=== PATIENT | female | born 1965 | race Two or more races ===

== ENCOUNTER 2023-12-28 08:29 | Outpatient (RCR) | payer BC, SELFPAY ==
[2023-12-27 15:10] LABS: Alanine Aminotransferase 22 U/L (10-49); Albumin, Serum 4.5 gm/dL (3.5-5.0); Albumin/Globulin Ratio 1.6 (1.2-2.2); Alkaline Phosphatase 68 U/L (46-116); Anion Gap 7 (7-16); Aspartate Amino Transferase 23 U/L (0-34); BUN/Creatinine Ratio 19 Ratio (12-20); Bilirubin,Total 0.8 mg/dL (0.3-1.2); Blood Urea Nitrogen 15 mg/dL (9-23); Calcium 10.1 mg/dL (8.3-10.6); Calcium (Corrected) 10.1 mg/dL (8.5-10.1); Chloride 104 mMol/L (98-107); Creatinine (Component) 0.8 mg/dL (0.6-1.3); Globulin 2.9 gm/dL (2.3-3.5); Glucose 214 mg/dL (74-106); Osmolality,Calculated 278 (275-295); Potassium 3.7 mMol/L (3.4-5.1); Sodium 136 mMol/L (136-145); Total Protein 7.4 gm/dL (5.7-8.2); eGFR > 60 See Note
[2023-12-27 15:15] LABS: Basophils % (Auto) 0 % (0-2.5); Eosinophils # (Auto) 0.1 Thou/mm3 (0.0-0.5); Eosinophils % (Auto) 1 % (0-10); Hematocrit 36.5 % (36.0-46.0); Hemoglobin 11.7 g/dL (12.0-16.0); Immature Granulocytes % (Auto) 0 % (0-0); Immature Granulocytes Auto 0.02 Thou/mm3 (0.00-0.00); Lymphocytes # (Auto) 1.5 Thou/mm3 (1.0-4.8); Lymphocytes % (Auto) 24 % (10-50); Mean Corpuscular HGB Conc 32.1 g/dl (31.0-37.0); Mean Corpuscular Hemoglobin 22.5 pg (25.0-35.0); Mean Corpuscular Volume 70 fL (80-100); Monocytes # (Auto) 0.6 Thou/mm3 (0.0-0.8); Monocytes % (Auto) 9 % (0-12); Neutrophils # (Auto) 4.3 Thou/mm3 (1.8-7.7); Neutrophils % (Auto) 66 % (37-80); Nucleated Red Blood Cell % 0 /100 WBC (0); Platelet Count 200 Thou/mm3 (140-440); RDW Standard Deviation 35.2 fL (36.4-46.3); White Blood Count 6.6 Thou/mm3 (3.6-11.0)
[2023-12-27 15:27] LABS: CA 15-3 2.5 U/mL (<32.4); Carcinoembryonic Antigen 0.7 ng/mL (0.0-5.0)
== END 2024-01-08 23:59 | disposition home or self-care (01) ==
LOC: SCTC 08:29
PROVIDERS: PCP Specialist; Referring Provider Specialist; Visit Provider Nurse Practitioner Family
DX: C50.212 Malignant neoplasm of upper-inner quadrant of left female breast (principal); Z17.0 Estrogen receptor positive status [ER+]; Z17.22 Progesterone receptor negative status; Z17.32 Human epidermal growth factor receptor 2 negative status; Z90.12 Acquired absence of left breast and nipple; Z92.21 Personal history of antineoplastic chemotherapy; Z79.811 Long term (current) use of aromatase inhibitors; N64.4 Mastodynia; D56.3 Thalassemia minor; M85.88 Other specified disorders of bone density and structure, other site; E11.9 Type 2 diabetes mellitus without complications; Z79.83 Long term (current) use of bisphosphonates
CPT/HCPCS: 36591; 80053; 82378; 85025; 86300; 99212; A4216; J1642; G0463

== ENCOUNTER → 2024-02-21 | Outpatient (CLI) | payer BC, SELFPAY ==
--- NOTE | 2024-02-21 12:00 | XR_ITS ---
Examination: Breast ultrasound, unilateral, left complete Date and time of exam: February 21, 2024 1128 hours INDICATIONS: BI-RADS 4 suspicious nodule retroareolar region left breast, 13 x 13 mm, biopsied on September 22, 2023 Technique: Real-time choudhary scale ultrasonographic imaging performed left breast including all 4 quadrants as well as nipple retroareolar and axillary region. Findings: 3:00 oval mass or calcified 5 x 5 mm Retroareolar oval mass with breast biopsy marker 15 x 9 x 14 mm IMPRESSION: BI-RADS Category 3: Probably benign findings One additional 6 month left breast sonogram is needed to document continued stability of retroareolar nodule left breast
== END | disposition home or self-care (01) ==
PROVIDERS: PCP Physician Assistant; Referring Provider Nurse Practitioner Family; Visit Provider Nurse Practitioner Family
DX: N63.42 Unspecified lump in left breast, subareolar (principal); C50.212 Malignant neoplasm of upper-inner quadrant of left female breast
CPT/HCPCS: 76641

== ENCOUNTER 2024-03-14 11:03 | Outpatient (RCR) | payer BC, SELFPAY ==
[2024-03-13 16:49] LABS: Basophils % (Auto) 0 % (0-2.5); Eosinophils # (Auto) 0.1 Thou/mm3 (0.0-0.5); Eosinophils % (Auto) 2 % (0-10); Hematocrit 34.5 % (36.0-46.0); Immature Granulocytes % (Auto) 0 % (0-0); Immature Granulocytes Auto 0.01 Thou/mm3 (0.00-0.00); Lymphocytes # (Auto) 1.8 Thou/mm3 (1.0-4.8); Lymphocytes % (Auto) 32 % (10-50); Mean Corpuscular HGB Conc 31.9 g/dl (31.0-37.0); Mean Corpuscular Volume 69 fL (80-100); Monocytes # (Auto) 0.5 Thou/mm3 (0.0-0.8); Monocytes % (Auto) 9 % (0-12); Neutrophils # (Auto) 3.3 Thou/mm3 (1.8-7.7); Neutrophils % (Auto) 57 % (37-80); Nucleated Red Blood Cell % 0 /100 WBC (0); Platelet Count 212 Thou/mm3 (140-440); RDW Standard Deviation 34.5 fL (36.4-46.3); White Blood Count 5.7 Thou/mm3 (3.6-11.0)
[2024-03-13 16:51] LABS: Immature Reticulocyte Fraction 14.1 % (3.0-15.9); Reticulocyte % (Auto) 1.1 % (0.5-1.5); Reticulocyte Hgb Content 26.9 pg (28.0-35.0)
[2024-03-13 17:13] LABS: Alanine Aminotransferase 26 U/L (10-49); Albumin, Serum 4.4 gm/dL (3.5-5.0); Albumin/Globulin Ratio 1.5 (1.2-2.2); Alkaline Phosphatase 58 U/L (46-116); Anion Gap 9 (7-16); Aspartate Amino Transferase 26 U/L (0-34); BUN/Creatinine Ratio 27 Ratio (12-20); Bilirubin,Total 0.7 mg/dL (0.3-1.2); Blood Urea Nitrogen 16 mg/dL (9-23); Calcium 10.4 mg/dL (8.3-10.6); Calcium (Corrected) 10.4 mg/dL (8.5-10.1); Carbon Dioxide 27.3 mMol/L (20.0-31.0); Chloride 104 mMol/L (98-107); Creatinine (Component) 0.6 mg/dL (0.6-1.3); Glucose 117 mg/dL (74-106); Osmolality,Calculated 281 (275-295); Potassium 3.9 mMol/L (3.4-5.1); Sodium 140 mMol/L (136-145); Total Protein 7.4 gm/dL (5.7-8.2); eGFR > 60 See Note
[2024-03-13 17:16] LABS: Folate > 24.00 ng/mL (>5.38); Vitamin B12 1489 pg/mL (211-911)
[2024-03-13 22:50] LABS: Ferritin 58 ng/mL (7.3-270.7); Total Iron Binding Capacity 328 mcg/dL (250-425)
[2024-03-13 23:00] LABS: Iron 93 mcg/dL (50-170); Percent Iron Saturation 28 % (20-55); Unsaturated Iron Binding 235 (225-295)
== END 2024-04-07 23:59 | disposition home or self-care (01) ==
LOC: SCTC 11:03
PROVIDERS: PCP Physician Assistant; Referring Provider Physician Assistant; Visit Provider Nurse Practitioner Family
DX: C50.212 Malignant neoplasm of upper-inner quadrant of left female breast (principal); Z17.0 Estrogen receptor positive status [ER+]; Z17.22 Progesterone receptor negative status; Z17.32 Human epidermal growth factor receptor 2 negative status; Z90.12 Acquired absence of left breast and nipple; Z92.21 Personal history of antineoplastic chemotherapy; Z92.3 Personal history of irradiation; Z79.811 Long term (current) use of aromatase inhibitors; D56.3 Thalassemia minor; M85.88 Other specified disorders of bone density and structure, other site; Z79.83 Long term (current) use of bisphosphonates; E11.9 Type 2 diabetes mellitus without complications
CPT/HCPCS: 36591; 80053; 82607; 82728; 82746; 83540; 83550; 85025; 85046; 99212; A4216; J1642; G0463

== ENCOUNTER 2024-07-06 07:22 | Outpatient (RCR) | payer BC, SELFPAY ==
[2024-06-12 11:46] LABS: Basophils % (Auto) 0 % (0-2.5); Eosinophils # (Auto) 0.1 Thou/mm3 (0.0-0.5); Eosinophils % (Auto) 2 % (0-10); Hemoglobin 10.9 g/dL (12.0-16.0); Immature Granulocytes % (Auto) 0 % (0-0); Immature Granulocytes Auto 0.02 Thou/mm3 (0.00-0.00); Lymphocytes # (Auto) 1.4 Thou/mm3 (1.0-4.8); Lymphocytes % (Auto) 23 % (10-50); Mean Corpuscular HGB Conc 31.1 g/dl (31.0-37.0); Mean Corpuscular Hemoglobin 22.3 pg (25.0-35.0); Mean Corpuscular Volume 72 fL (80-100); Monocytes # (Auto) 0.4 Thou/mm3 (0.0-0.8); Monocytes % (Auto) 7 % (0-12); Neutrophils # (Auto) 4.1 Thou/mm3 (1.8-7.7); Neutrophils % (Auto) 68 % (37-80); Nucleated Red Blood Cell % 0 /100 WBC (0); Platelet Count 183 Thou/mm3 (140-440); RDW Standard Deviation 35.6 fL (36.4-46.3); Red Blood Count 4.89 Miln/mm3 (4.00-5.20); White Blood Count 6.1 Thou/mm3 (3.6-11.0)
[2024-06-12 11:54] LABS: Alanine Aminotransferase 17 U/L (10-49); Albumin, Serum 4.1 gm/dL (3.5-5.0); Albumin/Globulin Ratio 1.5 (1.2-2.2); Alkaline Phosphatase 56 U/L (46-116); Anion Gap 8 (7-16); Aspartate Amino Transferase 18 U/L (0-34); BUN/Creatinine Ratio 20 Ratio (12-20); Bilirubin,Total 0.9 mg/dL (0.3-1.2); Blood Urea Nitrogen 14 mg/dL (9-23); Calcium 9.2 mg/dL (8.3-10.6); Calcium (Corrected) 9.2 mg/dL (8.5-10.1); Carbon Dioxide 25.1 mMol/L (20.0-31.0); Chloride 106 mMol/L (98-107); Creatinine (Component) 0.7 mg/dL (0.6-1.3); Globulin 2.7 gm/dL (2.3-3.5); Glucose 161 mg/dL (74-106); Osmolality,Calculated 281 (275-295); Potassium 4.1 mMol/L (3.4-5.1); Sodium 139 mMol/L (136-145); Total Protein 6.8 gm/dL (5.7-8.2); eGFR > 60 See Note
[2024-06-12 12:09] LABS: Carcinoembryonic Antigen < 0.5 ng/mL (0.0-5.0)
--- NOTE | 2024-06-14 12:52 | CTCFLWUP_ITS ---
Patient: EVELIO RIVERA : 1965 Page 2 of 2 FOLLOW UP NOTE DATE OF SERVICE: 06/13/2024 NAME: EVELIO RIVERA ACCOUNT: [id number] : 1965 AGE: 58 INTERVAL HISTORY: Evelio, a female with stage one breast cancer diagnosed in 2020, presented for follow-up of cancer treatment and bone health monitoring. Her history includes hypercholesterolemia and menopause. She continues exemestane for hormone therapy, which is worsening her menopausal symptoms, and atorvastatin for cholesterol. She requires Reclast infusions every 6 months for bone health and takes calcium and vitamin D supplements. Annual mammogram is scheduled for June, with left breast ultrasound in July. A multivitamin was recommended instead of vitamin B17. Chief Complaint Follow-up for breast cancer treatment, medication management, bone health monitoring History of Present Illness Odilon Kelley is a female patient with a history of stage one breast cancer diagnosed in 2020, who underwent chemotherapy and radiation therapy. She is currently on exemestane for ongoing cancer management. The patient is adherent to her prescribed treatment regimen, including exemestane and atorvastatin for cholesterol management. She reports experiencing worsened menopausal symptoms, which may be attributed to the exemestane preventing hormone formation in fat cells. Evelio has discontinued an oral medic ation and now requires Reclast infusions every 6 months for bone health. She continues to take calcium and vitamin D supplements as recommended. Evelio's last mammogram was in June 2023, and she has an upcoming appointment in July. She is due for her annual mammogram in June and an ultrasound of her left breast in July, as recommended following a February ultrasound. The patient reports no use of vitamin B17 and has been advised to take a multivitamin like Centrum Silver instead, which includes calcium, vitamin D, and B12. Medical History - Hypercholesterolemia, managed with atorvastatin - Stage one breast cancer diagnosed in 2020 - Menopause Medications and Supplements - Exemestane - Prevents hormone formation in fat cells - Worsens menopause symptoms - Atorvastatin - Helps reduce cholesterol - Calcium - Vitamin D - Reclast - Infusion every 6 months - Replaced oral medication Social History - Living Situation: Lives in [facility], approximately 15 minutes away from the medical facility - Travel: Planning to be out of the country from late July to August Review of Systems Endocrine: Positive for worsening menopause symptoms. Laboratory, Imaging, and Diagnostic Test Results - Mammogram (June 2023): Performed, results not specified - Ultrasound of left breast (February 2024): Performed, results not specified ONCOLOGY HISTORY: Stage Ia (pT1b, SN N0, cM0)) high-grade, ER positive, MI negative, HER-2/johnnie negative invasive ductal carcinoma of the left breast. S/p left breast lumpectomy and sentinel lymph node biopsy (10/25/2020) High Oncotype recurrence score of 39 S/p 4 cycles of dose dense AC as well as 4 cycles of dose dense Taxol (12/26/2020?04/02/2021) S/p adjuvant radiation therapy to the left breast (04/23/2021 - 06/10/2021) Adjuvant anastrozole started on 04/21/2021. Unable to tolerate anastrozole as well as letrozole Taking exemestane 25 mg daily since 10/15/2022, tolerating it well. Beta thalassemia minor, lab done on 09/17/2022 DEXA, osteopenia, 03/04/2023. DIAGNOSIS: Malignant neoplasm of upper-inner quadrant of left female breast [ICD10] C50.212 DATE OF DIAGNOSIS: 10/25/2020 STAGE/TNM: Stage Ia (pT1b, SN N0, cM0)) high-grade, ER positive, MI negative, HER-2/johnnie negative invasive ductal carcinoma of the left breast. TREATMENT HISTORY: Care?Plan Start?Date Cycle Day Intent AC-Taxol?Dose?Dense?q?2wks 12/03/2020 1 14 Curative?(adjuvant) HISTORY OF PRESENT ILLNESS: Ms. Rivera is here at [facility] clinic. Left breast biopsy showed benign fibroadenoma, negative for carcinoma, 10/13/2023. Patient taking exemestane 25 mg daily, tolerating well. Patient reports good appetite and energy levels. 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 Patient's only complaint is intermittent left breast pain due to healed surgical scar that she has had since her left breast lumpectomy 2020. Patient denies palpable breast lumps, denies palpable lumps to bilateral axilla. She denies any cough, chest pain, abdominal pain or leg cramps, weight loss. HISTORY: Evelio Rivera is a 58-year-old SPA speaking female with the following oncology history. 03/07/2018: Bilateral digital diagnostic mammography? 04/21/2019: Left breast diagnostic mammogram? 06/07/2019: Left breast ultrasound-guided biopsy? 07/19/2020: Left breast diagnostic mammogram? 10/01/2020: Left breast stereotactic core biopsy? 10/25/2020: Left breast lumpectomy and sentinel lymph node biopsy? 01/30/2021: Bone density test? 12/26/2020?04/02/2021: Ms. Rivera was treated with 4 cycles of dose dense before meals and 4 cycles of dose dense Taxol. S/p adjuvant radiation therapy to the left breast (04/23/2021 - 06/10/2021) Adjuvant anastrozole started on 04/21/2021. She also started taking Citracal 1 tablet p.o. twice daily 05/25/2022: Hemoglobin 10.7, MCV 71, WBC 4.6, ANC 2.9, platelets 205,000. 09/02/2022: Hemoglobin 11.1, MCV 77, WBC 5.4, ANC 3.5, platelets 219,000, creatinine 0.90, ferritin 57, iron saturation 32%, B12 1160, folate more than 20. 09/17/2022: Hemoglobin electrophoresis: Beta thalassemia minor 12/04/2022: Hemoglobin 11.1, MCV 78, WBC 5.9, ANC 4.2, platelets 211,000, creatinine 0.7, CA 15?3 is 3.0, CEA<0.5 03/04/2023: DEXA 03/05/2023: Hemoglobin 11.4, MCV 71, WBC 5.8, ANC 3.8, platelets 216,000, creatinine 0.7 06/01/2023: Hemoglobin 11.3, MCV 78, WBC 5.5, ANC 3.7, platelets 193,000, CEA < 0.5 07/09/2023: Bilateral mammogram screen 09/06/2023: CEA 0.7 10/13/2023: Left breast biopsy-benign, fibroadenoma OTHER MEDICAL HISTORY/CONDITIONS: FAMILY HISTORY: SOCIAL HISTORY: ROAD BOSS HISTORY: MEDICATIONS: 1. Aromasin - 25 mg 1 tab po q daily 2. atorvastatin - 10 mg 1 tab Daily 3. Citracal - 200 mg (950 mg) 1 tab Twice a Day 4. Januvia - 100 mg 1 tab Daily 5. lisinopril - 2.5 mg Daily Medications Last Reconciled by Evelio Villela MA on 06/13/2024 ALLERGIES: No Known Allergies; No Known Drug Allergies REVIEW OF SYSTEMS: A complete 14-point review of systems was performed and is negative except as noted in interval history. PHYSICAL EXAMINATION: VITAL SIGNS: Temperature?99.7, B/P?107/69, Oxygen?Saturation?97% Weight?125?lbs (Change?since?06/12/24:?-0.2?lbs) PAIN: 0 - No pain ECOG Performance Status: 0 - Asymptomatic and fully active GENERAL APPEARANCE: Appears well, in no apparent distress, appropriately interactive. HEENT: Normocephalic, no temporal wasting, normal conjunctiva, , normal hearing, lips without lesions, neck normal range of motion. CARDIOVASCULAR: Normal heart Stage Ia (pT1b, SN N0, cM0)) high-grade, ER positive, MI negative, HER-2/johnnie negative invasive ductal carcinoma of the left breast. S/p left breast lumpectomy and sentinel lymph node biopsy (10/25/2020) High Oncotype recurrence score of 39 S/p 4 cycles of dose dense AC as well as 4 cycles of dose dense Taxol (12/26/2020?04/02/2021) S/p adjuvant radiation therapy to the left breast (04/23/2021 - 06/10/2021) Adjuvant anastrozole started on 04/21/2021. Unable to tolerate anastrozole as well as letrozole Taking exemestane 25 mg daily since 10/15/2022, tolerating it well. History of diabetes Beta thalassemia minor, lab done on 09/17/2022 DEXA, osteopenia, 03/04/2023. PULMONARY: Normal respiratory effort, no respiratory distress or use of accessory muscles, speaking in full sentences, no tachypnea. EXTREMITIES: No cyanosis. SKIN: Normal skin appearance. NEUROLOGIC: Alert and oriented x4. PSHYCHIATRIC: Appropriate affect, mood normal, behavior normal, intact thought and speech. LABORATORY DATA: I have personally reviewed and interpreted each of the patient?s relevant lab tests, abnormal findings are below: Date 03/13/24 06/12/24 ??WHITE?BLOOD?COUNT?(Thou/mm3) ? 6.1 ??RED?BLOOD?COUNT?(Miln/mm3) ? 4.89 ??HEMOGLOBIN?(gm/dl) ? 10.9?L ??HEMATOCRIT?(%) ? 35.0?L ??PLATELET?COUNT?(Thou/mm3) ? 183 ??NEUTROPHILS?%,?AUTO?(%) ? 68 ??LYMPH?%,?AUTO?(%) ? 23 ??NEUTROPHILS,?AUTO?(Thou/mm3) ? 4.1 ??GLUCOSE,RANDOM?(mg/dL) ? 161?H ??BLOOD?UREA?NITROGEN?(mg/dL) ? 14 ??CREATININE?(mg/dL) ? 0.70 ??SODIUM?(mmol/L) ? 139 ??POTASSIUM?(mmol/L) ? 4.1 ??CHLORIDE?(mmol/L) ? 106 ??CrCl?(CandG)?(ml/min) ? 79.49 ??AST/SGOT?(Unit/L) ? 18 ??ALT/SGPT?(Unit/L) ? 17 ??ALKALINE?PHOSPHATASE?(Unit/L) ? 56 ??BILIRUBIN,?TOTAL?(mg/dL) ? 0.9 ??PROTEIN?TOTAL?(gm/dl) ? 6.8 ??ALBUMIN,?SERUM?(gm/dl) ? 4.1 ??GLOBULIN?(gm/dl) ? 2.7 ??ALBUMIN/GLOBULIN?RATIO ? 1.5 ??CALCIUM,?SERUM?(mg/dL) ? 9.2 ??CALCIUM?SERUM?(CORRECTED)?(mg/dL) ? 9.2 ??CEA?(O*)?(ng/ml) ? <?0.5 ??RETICULOCYTE?ABSOLUTE?AUTO?(Biln/L) 56.0 ? ASSESSMENT/PLAN: 1. Stage Ia (pT1b, SN N0, cM0)) high-grade, ER positive, MI negative, HER-2/johnnie negative invasive ductal carcinoma of the left breast. S/p left breast lumpectomy and sentinel lymph node biopsy (10/25/2020) High Oncotype recurrence score of 39 S/p 4 cycles of dose dense AC as well as 4 cycles of dose dense Taxol (12/26/2020?04/02/2021) S/p adjuvant radiation therapy to the left breast (04/23/2021 - 06/10/2021) Right sided chest Chemo-Port, declining to remove, will come in for flush every 6 to 8 weeks. Adjuvant anastrozole started on 04/21/2021, discontinued. Wrist pains as well as elbow pains and generalized body aches improved since starting exemestane and discontinuing letrozole. She attributes these pains to letrozole. Did not want to continue letrozole. Tolerating exemestane 25 mg since 10/15/2022. Continue exemestane CEA is 0.7 on 12/27/2023 Left breast biopsy showed benign fibroadenoma negative for carcinoma, 10/13/2023 Left breast ultrasound showed probably benign findings, 1 additional 6-month left breast ultrasound recommended, 02/21/2024. 2. Thalassemia minor, hemoglobin electrophoresis lab done on 09/17/2022 Reports history of iron deficiency and B12, takes [id number] B12 supplements at home Hemoglobin 11.0, MCV 69, iron saturation 28% ferritin 58, vitamin B12 is 1,489, folate is >24.00 on 03/13/2024. 3. Colonoscopy done in [place] 2021, according to patient she was told that it was normal. 4.Bone density test done on 03/04/2023 showed osteopenia, decrease in bone mineral density compared to prior exam. Odilon Kelley, a female patient with a history of stage one breast cancer in 2020, treated with chemotherapy and radiation, currently on exemestane for hormone therapy. Breast Cancer History Assessment: Patient had stage one breast cancer in 2020, treated with chemotherapy and radiation. Currently on exemestane for hormone therapy. Exemestane prevents hormone formation in fat cells, which can worsen menopause symptoms. Last mammogram was in June 2023, with an upcoming appointment in July. An ultrasound of the left breast is recommended following the February ultrasound. Plan: - Continue exemestane (dose not specified) - Schedule annual mammogram in June - Schedule ultrasound of left breast in July - Follow-up appointment in July (already scheduled) Osteoporosis Assessment: Patient requires Reclast infusions every 6 months due to discontinuation of oral medication. Calcium and vitamin D supplementation is ongoing. Plan: - Schedule Reclast infusion (nurse to call patient) - Continue calcium and vitamin D supplementation (doses not specified) Hypercholesterolemia Assessment: Patient is taking atorvastatin for cholesterol management. Exemestane does not interfere with atorvastatin. Plan: - Continue atorvastatin (dose not specified) Nutritional Supplementation Assessment: Patient inquired about vitamin B17 supplementation. Recommendation for a multivitamin like Centrum Silver was provided instead, which includes calcium, vitamin D, and B12. Plan: - Discontinue vitamin B17 if currently taking - Start multivitamin (e.g., Centrum Silver) daily RETURN TO CLINIC: BILLING AND COMPLIANCE: I reviewed external records from providers outside my specialty as summarized above. I spent a total of 50 minutes on this patient?s care on the day of their visit excluding time spent related to any billed procedures. This time includes time spent with the patient as well as time spent documenting in the medical record, reviewing patients records and tests, obtaining history, placing orders, communicating with other healthcare professionals, counseling the patient, family or caregiver, and/or care coordination for the diagnoses above. Electronically Signed by: Alex Mccabe MD T: 12:50 PM CC: PCP: Moriah Vargas Referring: Moriah Vargas This document was completed utilizing speech recognition software. Grammatical errors, random word insertions, pronoun errors, and incomplete sentences are an occasional consequence of this system due to software limitations, ambient noise, and hardware issues. Any formal questions or concerns about the content, text or information contained within the body of this dictation should be directly addressed to the provider for clarification.
== END 2024-07-08 23:59 | disposition home or self-care (01) ==
LOC: SCTC 07:22
PROVIDERS: PCP Physician Assistant; Referring Provider Nurse Practitioner Family; Visit Provider Internal Medicine Hematology & Oncology
DX: C50.212 Malignant neoplasm of upper-inner quadrant of left female breast (principal); Z17.0 Estrogen receptor positive status [ER+]; Z17.22 Progesterone receptor negative status; Z17.32 Human epidermal growth factor receptor 2 negative status; Z90.12 Acquired absence of left breast and nipple; Z92.21 Personal history of antineoplastic chemotherapy; Z79.811 Long term (current) use of aromatase inhibitors; D56.3 Thalassemia minor; E53.8 Deficiency of other specified B group vitamins; E61.1 Iron deficiency; M81.0 Age-related osteoporosis without current pathological fracture; E78.00 Pure hypercholesterolemia, unspecified
CPT/HCPCS: 36591; 80053; 82378; 85025; 86300; 99213; A4216; J1642; G0463

== ENCOUNTER → 2024-07-10 | Outpatient (CLI) | payer BC, SELFPAY ==
--- NOTE | 2024-07-10 08:15 | XR_ITS ---
Examination: Screening digital mammography, bilateral Computer aided detection 3-D breast Tomosynthesis, bilateral Date and time of exam: July 10, 2024 1117 hours Compared to mammograms dating to October 01, 2020 Indication: Screening Technique: Nonmagnified MLO, CC views of the breasts to been obtained, reconstructed from 3-D Tomosynthesis images. R2 computer aided detection program utilized for evaluation of suspicious masses and/or abnormal calcifications. 3-D Tomosynthesis images obtained. Findings: The breasts are heterogeneously dense, which may obscure small masses 28 mm focal asymmetry upper outer left breast Breast biopsy markers retroareolar region left breast Impression: BI-RADS Category 0: Incomplete: Need additional imaging evaluation Recommend follow-up spot tomographic views of focal asymmetry upper outer left breast as well as left breast sonography to complete the workup
== END | disposition home or self-care (01) ==
LOC: CDIM 08:09
PROVIDERS: PCP Physician Assistant; Referring Provider Nurse Practitioner Family; Visit Provider Nurse Practitioner Family
DX: Z12.31 Encounter for screening mammogram for malignant neoplasm of breast (principal); N64.89 Other specified disorders of breast; C50.212 Malignant neoplasm of upper-inner quadrant of left female breast
CPT/HCPCS: 77063; 77067

== ENCOUNTER → 2024-07-25 | Outpatient (CLI) | payer BC, MEDICAID, SELFPAY ==
--- NOTE | 2024-07-25 16:00 | XR_ITS ---
Examination: Breast ultrasound, unilateral, left complete Date and time of exam: July 25, 2024 1606 hours INDICATIONS: Mammogram July 10, 2024 28 mm focal asymmetry outer left breast Technique: Real-time choudhary scale ultrasonographic imaging performed left breast including all 4 quadrants as well as nipple retroareolar and axillary region. Findings: 3:00 circumscribed nodule 3 x 4 mm Retroareolar nodule indistinct margins 18 x 11 x 14 mm IMPRESSION: BI-RADS Category 4: Suspicious for malignancy Suspicious mass retroareolar region left breast, biopsy is needed to exclude breast carcinoma, this mass is amenable to ultrasound-guided breast biopsy for diagnosis
== END | disposition home or self-care (01) ==
PROVIDERS: PCP Physician Assistant; Referring Provider Internal Medicine Hematology & Oncology; Visit Provider Internal Medicine Hematology & Oncology
DX: N63.25 Unspecified lump in the left breast, overlapping quadrants (principal); N63.42 Unspecified lump in left breast, subareolar
CPT/HCPCS: 76641

== ENCOUNTER 2024-09-14 10:25 | Outpatient (RCR) | payer MEDICAID, SELFPAY ==
[2024-09-13 09:19] LABS: Basophils # (Auto) 0.0 Thou/mm3 (0.0-0.2); Basophils % (Auto) 0 % (0-2.5); Eosinophils # (Auto) 0.1 Thou/mm3 (0.0-0.5); Eosinophils % (Auto) 2 % (0-10); Hematocrit 33.9 % (36.0-46.0); Hemoglobin 10.8 g/dL (12.0-16.0); Immature Granulocytes Auto 0.01 Thou/mm3 (0.00-0.00); Lymphocytes # (Auto) 1.5 Thou/mm3 (1.0-4.8); Lymphocytes % (Auto) 26 % (10-50); Mean Corpuscular HGB Conc 31.9 g/dl (31.0-37.0); Mean Corpuscular Hemoglobin 22.7 pg (25.0-35.0); Mean Corpuscular Volume 71 fL (80-100); Monocytes # (Auto) 0.6 Thou/mm3 (0.0-0.8); Monocytes % (Auto) 9 % (0-12); Neutrophils # (Auto) 3.6 Thou/mm3 (1.8-7.7); Neutrophils % (Auto) 62 % (37-80); Nucleated Red Blood Cell # 0.00 Thou/mm3 (0.00-0.00); Nucleated Red Blood Cell % 0 /100 WBC (0); Platelet Count 220 Thou/mm3 (140-440); RDW Standard Deviation 36.5 fL (36.4-46.3); Red Blood Count 4.76 Miln/mm3 (4.00-5.20); White Blood Count 5.9 Thou/mm3 (3.6-11.0)
[2024-09-13 09:34] LABS: Alanine Aminotransferase 37 U/L (10-49); Albumin, Serum 4.1 gm/dL (3.5-5.0); Albumin/Globulin Ratio 1.6 (1.2-2.2); Alkaline Phosphatase 62 U/L (46-116); Anion Gap 6 (7-16); Aspartate Amino Transferase 33 U/L (0-34); BUN/Creatinine Ratio 19 Ratio (12-20); Bilirubin,Total 0.7 mg/dL (0.3-1.2); Blood Urea Nitrogen 13 mg/dL (9-23); Calcium 9.5 mg/dL (8.3-10.6); Calcium (Corrected) 9.5 mg/dL (8.5-10.1); Carbon Dioxide 26.7 mMol/L (20.0-31.0); Chloride 106 mMol/L (98-107); Creatinine (Component) 0.7 mg/dL (0.6-1.3); Globulin 2.5 gm/dL (2.3-3.5); Glucose 140 mg/dL (74-106); Osmolality,Calculated 279 (275-295); Potassium 4.0 mMol/L (3.4-5.1); Sodium 139 mMol/L (136-145); Total Protein 6.6 gm/dL (5.7-8.2); eGFR > 60 See Note
--- NOTE | 2024-09-14 11:02 | CTCFLWUP_ITS ---
Patient: EVELIO RIVERA : 1965 Page 7 of 10 FOLLOW UP NOTE DATE OF SERVICE: 09/14/2024 NAME: EVELIO RIVERA ACCOUNT: [id number] : 1965 AGE: 59 INTERVAL HISTORY: 59-year-old woman with breast cancer here for follow-up. Patient is taking her exemestane calcium and vitamin D and scheduled for Zometa tomorrow. Patient is also scheduled for biopsy on the left breast again and is very worried. Patient is very reluctant for biopsy and requesting for of outside opinion as well as follow-up with another surgeon. Medical History - Hypercholesterolemia, managed with atorvastatin - Stage one breast cancer diagnosed in 2020 - Menopause Medications and Supplements - Exemestane - Prevents hormone formation in fat cells - Worsens menopause symptoms - Atorvastatin - Helps reduce cholesterol - Calcium - Vitamin D - Reclast - Infusion every 6 months - Replaced oral medication Social History - Living Situation: Lives in [facility], approximately 15 minutes away from the medical facility - Travel: Planning to be out of the country from late July to August Review of Systems Endocrine: Positive for worsening menopause symptoms. Laboratory, Imaging, and Diagnostic Test Results - Mammogram (June 2023): Performed, results not specified - Ultrasound of left breast (February 2024): Performed, results not specified ONCOLOGY HISTORY:?[facility] Hx? Stage Ia (pT1b, SN N0, cM0)) high-grade, ER positive, MO negative, HER-2/johnnie negative invasive ductal carcinoma of the left breast. S/p left breast lumpectomy and sentinel lymph node biopsy (10/25/2020) High Oncotype recurrence score of 39 S/p 4 cycles of dose dense AC as well as 4 cycles of dose dense Taxol (12/26/2020?04/02/2021) S/p adjuvant radiation therapy to the left breast (04/23/2021 - 06/10/2021) Adjuvant anastrozole started on 04/21/2021. Unable to tolerate anastrozole as well as letrozole Taking exemestane 25 mg daily since 10/15/2022, tolerating it well. Beta thalassemia minor, lab done on 09/17/2022 DEXA, osteopenia, 03/04/2023. DIAGNOSIS: Malignant neoplasm of upper-inner quadrant of left female breast [ICD10] C50.212?[facility] Dx? DATE OF DIAGNOSIS: 10/25/2020 STAGE/TNM: Stage Ia (pT1b, SN N0, cM0)) high-grade, ER positive, MO negative, HER-2/johnnie negative invasive ductal carcinoma of the left breast. TREATMENT HISTORY: Care?Plan Start?Date Cycle Day Intent AC-Taxol?Dose?Dense?q?2wks 12/03/2020 1 14 Curative?(adjuvant) zometa?q?30?days,?q?90?days?for?bone?mets 06/13/2024 1 90 Maintenance HISTORY OF PRESENT ILLNESS: Ms. Rivera is here at [facility] clinic. Left breast biopsy showed benign fibroadenoma, negative for carcinoma, 10/13/2023. Patient taking exemestane 25 mg daily, tolerating well. Patient reports good appetite and energy levels. 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 Patient's only complaint is intermittent left breast pain due to healed surgical scar that she has had since her left breast lumpectomy 2020. Patient denies palpable breast lumps, denies palpable lumps to bilateral axilla. She denies any cough, chest pain, abdominal pain or leg cramps, weight loss. HISTORY: Evelio Rivera is a 59-year-old SPA speaking female with the following oncology history. 03/07/2018: Bilateral digital diagnostic mammography? 04/21/2019: Left breast diagnostic mammogram? 06/07/2019: Left breast ultrasound-guided biopsy? 07/19/2020: Left breast diagnostic mammogram? 10/01/2020: Left breast stereotactic core biopsy? 10/25/2020: Left breast lumpectomy and sentinel lymph node biopsy? 01/30/2021: Bone density test? 12/26/2020?04/02/2021: Ms. Rivera was treated with 4 cycles of dose dense before meals and 4 cycles of dose dense Taxol. S/p adjuvant radiation therapy to the left breast (04/23/2021 - 06/10/2021) Adjuvant anastrozole started on 04/21/2021. She also started taking Citracal 1 tablet p.o. twice daily 05/25/2022: Hemoglobin 10.7, MCV 71, WBC 4.6, ANC 2.9, platelets 205,000. 09/02/2022: Hemoglobin 11.1, MCV 77, WBC 5.4, ANC 3.5, platelets 219,000, creatinine 0.90, ferritin 57, iron saturation 32%, B12 1160, folate more than 20. 09/17/2022: Hemoglobin electrophoresis: Beta thalassemia minor 12/04/2022: Hemoglobin 11.1, MCV 78, WBC 5.9, ANC 4.2, platelets 211,000, creatinine 0.7, CA 15?3 is 3.0, CEA<0.5 03/04/2023: DEXA 03/05/2023: Hemoglobin 11.4, MCV 71, WBC 5.8, ANC 3.8, platelets 216,000, creatinine 0.7 06/01/2023: Hemoglobin 11.3, MCV 78, WBC 5.5, ANC 3.7, platelets 193,000, CEA < 0.5 07/09/2023: Bilateral mammogram screen 09/06/2023: CEA 0.7 10/13/2023: Left breast biopsy-benign, fibroadenoma OTHER MEDICAL HISTORY/CONDITIONS: FAMILY HISTORY: ?Clone Family Hx? SOCIAL HISTORY: [employer]AL HISTORY: MEDICATIONS: 1. atorvastatin - 10 mg 1 tab Daily 2. Citracal - 200 mg (950 mg) 1 tab Twice a Day 3. exemestane - 25 mg 1 tab Daily 4. Januvia - 100 mg 1 tab Daily 5. lisinopril - 2.5 mg Daily?Palabra Meds? Medications Last Reconciled by Evelio Villela MA on 09/14/2024 ALLERGIES: No Known Allergies; No Known Drug Allergies REVIEW OF SYSTEMS: A complete 14-point review of systems was performed and is negative except as noted in interval history. PHYSICAL EXAMINATION:?[facility] PE? VITAL SIGNS: Temperature?97.9, B/P?110/70, Oxygen?Saturation?99% Weight?121?lbs (Change?since?09/13/24:?-0.8?lbs) PAIN: 6 - Severe pain ECOG Performance Status: 0 - Asymptomatic and fully active GENERAL APPEARANCE: Appears well, in no apparent distress, appropriately interactive. HEENT: Normocephalic, no temporal wasting, normal conjunctiva, , normal hearing, lips without lesions, neck normal range of motion. PULMONARY: Normal respiratory effort, no respiratory distress or use of accessory muscles, speaking in full sentences, no tachypnea. EXTREMITIES: No cyanosis. SKIN: Normal skin appearance. NEUROLOGIC: Alert and oriented x4. PSHYCHIATRIC: Appropriate affect, mood normal, behavior normal, intact thought and speech. LABORATORY DATA: I have personally reviewed and interpreted each of the patient?s relevant lab tests, abnormal findings are below: Date 06/12/24 09/13/24 ??WHITE?BLOOD?COUNT?(Thou/mm3) ? 5.9 ??RED?BLOOD?COUNT?(Miln/mm3) ? 4.76 ??HEMOGLOBIN?(gm/dl) ? 10.8?L ??HEMATOCRIT?(%) ? 33.9?L ??PLATELET?COUNT?(Thou/mm3) ? 220 ??NEUTROPHILS?%,?AUTO?(%) ? 62 ??LYMPH?%,?AUTO?(%) ? 26 ??NEUTROPHILS,?AUTO?(Thou/mm3) ? 3.6 ??GLUCOSE,RANDOM?(mg/dL) 161?H 140?H ??BLOOD?UREA?NITROGEN?(mg/dL) 14 13 ??CREATININE?(mg/dL) 0.70 0.70 ??SODIUM?(mmol/L) 139 139 ??POTASSIUM?(mmol/L) 4.1 4.0 ??CHLORIDE?(mmol/L) 106 106 ??CrCl?(CandG)?(ml/min) 79.49 76.40 ??AST/SGOT?(Unit/L) 18 33 ??ALT/SGPT?(Unit/L) 17 37 ??ALKALINE?PHOSPHATASE?(Unit/L) 56 62 ??BILIRUBIN,?TOTAL?(mg/dL) 0.9 0.7 ??PROTEIN?TOTAL?(gm/dl) 6.8 6.6 ??ALBUMIN,?SERUM?(gm/dl) 4.1 4.1 ??GLOBULIN?(gm/dl) 2.7 2.5 ??ALBUMIN/GLOBULIN?RATIO 1.5 1.6 ??CALCIUM,?SERUM?(mg/dL) 9.2 9.5 ??CALCIUM?SERUM?(CORRECTED)?(mg/dL) 9.2 9.5 ??CEA?(O*)?(ng/ml) <?0.5 ? ASSESSMENT/PLAN:?Francesco Mccabe Assessment/Plan? 1. Stage Ia (pT1b, SN N0, cM0)) high-grade, ER positive, MO negative, HER-2/johnnie negative invasive ductal carcinoma of the left breast. S/p left breast lumpectomy and sentinel lymph node biopsy (10/25/2020) High Oncotype recurrence score of 39 S/p 4 cycles of dose dense AC as well as 4 cycles of dose dense Taxol (12/26/2020?04/02/2021) S/p adjuvant radiation therapy to the left breast (04/23/2021 - 06/10/2021) Right sided chest Chemo-Port, declining to remove, will come in for flush every 6 to 8 weeks. Adjuvant anastrozole started on 04/21/2021, discontinued. Wrist pains as well as elbow pains and generalized body aches improved since starting exemestane and discontinuing letrozole. She attributes these pains to letrozole. Did not want to continue letrozole. Tolerating exemestane 25 mg since 10/15/2022. Continue exemestane CEA is 0.7 on 12/27/2023 Left breast biopsy showed benign fibroadenoma negative for carcinoma, 10/13/2023 Left breast ultrasound showed probably benign findings, 1 additional 6-month left breast ultrasound recommended, 02/21/2024. 07/25/2024 patient's ultrasound showed retroareolar lesion in the left breast. Radiologist again planning to to do biopsy for patient. Patient is very reluctant and worried that she will have again and again a biopsy Will refer Ms. Rivera to Dr. Johansen Will get ultrasound done outside [facility] [place] for second opinion Patient will follow-up with Dr. Johansen for follow-up on her breast 2. Thalassemia minor, hemoglobin electrophoresis lab done on 09/17/2022 Reports history of iron deficiency and B12, takes [id number] B12 supplements at home Hemoglobin 11.0, MCV 69, iron saturation 28% ferritin 58, vitamin B12 is 1,489, folate is >24.00 on 03/13/2024. 3. Colonoscopy done in [place] 2021, according to patient she was told that it was normal. Osteoporosis Assessment: Patient requires Reclast infusions every 6 months due to discontinuation of oral medication. Calcium and vitamin D supplementation is ongoing. Plan: -Continue Zometa - Continue calcium and vitamin D supplementation Hypercholesterolemia Assessment: Patient is taking atorvastatin for cholesterol management. Exemestane does not interfere with atorvastatin. Plan: - Continue atorvastatin (dose not specified) Follow-up with primary care Nutritional Supplementation Assessment: Patient inquired about vitamin B17 supplementation. Recommendation for a multivitamin like Centrum Silver was provided instead, which includes calcium, vitamin D, and B12. Plan: -Continue multivitamin (e.g., Centrum Silver) daily Iron deficiency Patient noted to have anemia with iron deficiency Will check labs RTC in 6 to 8 weeks to follow-up ORDERS: Order # Description [id number] Breast Ultrasound + Left [id number] MD Follow Up 2 Months [id number] Ferritin + Iron Panel + Vitamin B-12 + Folic Acid; Serum RETURN TO CLINIC: I reviewed the diagnosis, prognosis, and recommended treatment/procedure options with the patient (and/or their legal loss prevention representative), including the potential benefits, risks, side effects and alternative therapies. We also discussed the option of no treatment and the possibility of clinical trial participation, if applicable. All questions were addressed, and they demonstrated understanding. They provided informed consent to proceed with the proposed plan of care. BILLING AND COMPLIANCE: I reviewed external records from providers outside my specialty as summarized above. I spent a total of 50 minutes on this patient?s care on the day of their visit excluding time spent related to any billed procedures. This time includes time spent with the patient as well as time spent documenting in the medical record, reviewing patients records and tests, obtaining history, placing orders, communicating with other healthcare professionals, counseling the patient, family or caregiver, and/or care coordination for the diagnoses above. Electronically Signed by: Alex Mccabe MD T: 10:59 AM CC: PCP: Alex Mccabe Referring: Alex Mccabe This document was completed utilizing speech recognition software. Grammatical errors, random word insertions, pronoun errors, and incomplete sentences are an occasional consequence of this system due to software limitations, ambient noise, and hardware issues. Any formal questions or concerns about the content, text or information contained within the body of this dictation should be directly addressed to the provider for clarification.
== END 2024-10-08 23:59 | disposition home or self-care (01) ==
LOC: SCTC 10:25
PROVIDERS: PCP Physician Assistant; Referring Provider Internal Medicine Hematology & Oncology; Visit Provider Internal Medicine Hematology & Oncology
DX: C50.212 Malignant neoplasm of upper-inner quadrant of left female breast (principal); Z17.0 Estrogen receptor positive status [ER+]; Z17.22 Progesterone receptor negative status; Z17.32 Human epidermal growth factor receptor 2 negative status; Z90.12 Acquired absence of left breast and nipple; Z92.3 Personal history of irradiation; Z92.21 Personal history of antineoplastic chemotherapy; D56.3 Thalassemia minor; M81.0 Age-related osteoporosis without current pathological fracture; E78.00 Pure hypercholesterolemia, unspecified; D50.9 Iron deficiency anemia, unspecified; Z79.811 Long term (current) use of aromatase inhibitors
CPT/HCPCS: 36591; 80053; 85025; A4216; J1642; Q3014

== ENCOUNTER 2024-11-21 11:10 | Outpatient (RCR) | payer MEDICAID, SELFPAY ==
[2024-11-20 10:24] LABS: Basophils # (Auto) 0.0 Thou/mm3 (0.0-0.2); Basophils % (Auto) 1 % (0-2.5); Eosinophils # (Auto) 0.2 Thou/mm3 (0.0-0.5); Eosinophils % (Auto) 4 % (0-10); Hematocrit 34.3 % (36.0-46.0); Hemoglobin 10.8 g/dL (12.0-16.0); Immature Granulocytes Auto 0.02 Thou/mm3 (0.00-0.00); Lymphocytes # (Auto) 1.6 Thou/mm3 (1.0-4.8); Lymphocytes % (Auto) 29 % (10-50); Mean Corpuscular HGB Conc 31.5 g/dl (31.0-37.0); Mean Corpuscular Hemoglobin 22.0 pg (25.0-35.0); Mean Corpuscular Volume 70 fL (80-100); Monocytes # (Auto) 0.5 Thou/mm3 (0.0-0.8); Monocytes % (Auto) 8 % (0-12); Neutrophils # (Auto) 3.1 Thou/mm3 (1.8-7.7); Neutrophils % (Auto) 58 % (37-80); Nucleated Red Blood Cell # 0.00 Thou/mm3 (0.00-0.00); Nucleated Red Blood Cell % 0 /100 WBC (0); Platelet Count 220 Thou/mm3 (140-440); RDW Standard Deviation 36.2 fL (36.4-46.3); Red Blood Count 4.90 Miln/mm3 (4.00-5.20); White Blood Count 5.3 Thou/mm3 (3.6-11.0)
[2024-11-20 10:46] LABS: Folate > 24.00 ng/mL (>5.38); Vitamin B12 757 pg/mL (211-911)
[2024-11-20 10:50] LABS: Ferritin 45 ng/mL (7.3-270.7); Iron 111 mcg/dL (50-170); Percent Iron Saturation 35 % (20-55); Total Iron Binding Capacity 311 mcg/dL (250-425); Unsaturated Iron Binding 200 (225-295)
[2024-11-20 10:51] LABS: Alanine Aminotransferase 32 U/L (10-49); Albumin, Serum 4.1 gm/dL (3.5-5.0); Albumin/Globulin Ratio 1.6 (1.2-2.2); Alkaline Phosphatase 57 U/L (46-116); Anion Gap 10 (7-16); Aspartate Amino Transferase 26 U/L (0-34); BUN/Creatinine Ratio 20 Ratio (12-20); Bilirubin,Total 0.7 mg/dL (0.3-1.2); Blood Urea Nitrogen 12 mg/dL (9-23); Calcium 9.7 mg/dL (8.3-10.6); Calcium (Corrected) 9.7 mg/dL (8.5-10.1); Carbon Dioxide 25.4 mMol/L (20.0-31.0); Chloride 106 mMol/L (98-107); Creatinine (Component) 0.6 mg/dL (0.6-1.3); Globulin 2.5 gm/dL (2.3-3.5); Glucose 137 mg/dL (74-106); Osmolality,Calculated 282 (275-295); Potassium 3.9 mMol/L (3.4-5.1); Sodium 141 mMol/L (136-145); Total Protein 6.6 gm/dL (5.7-8.2); eGFR > 60 See Note
--- NOTE | 2024-11-22 06:18 | CTCFLWUP_ITS ---
Patient: EVELIO RIVERA : 1965 Page 9 of 9 FOLLOW UP NOTE DATE OF SERVICE: 11/21/2024 NAME: EVELIO RIVERA ACCOUNT: [id number] : 1965 AGE: 59 INTERVAL HISTORY: 59-year-old woman with breast cancer here for follow-up. Patient is taking her exemestane calcium and vitamin D and scheduled for Zometa tomorrow. Patient is also scheduled for biopsy on the left breast again which is yet not completed Patient was referred to Dr. Johansen. Medical History - Hypercholesterolemia, managed with atorvastatin - Stage one breast cancer diagnosed in 2020 - Menopause Medications and Supplements - Exemestane - Prevents hormone formation in fat cells - Worsens menopause symptoms - Atorvastatin - Helps reduce cholesterol - Calcium - Vitamin D - Reclast - Infusion every 6 months - Replaced oral medication Social History - Living Situation: Lives in [facility], approximately 15 minutes away from the medical facility - Travel: Planning to be out of the country from late July to August Review of Systems Endocrine: Positive for worsening menopause symptoms. Laboratory, Imaging, and Diagnostic Test Results - Mammogram (June 2023): Performed, results not specified - Ultrasound of left breast (February 2024): Performed, results not specified ONCOLOGY HISTORY: Stage Ia (pT1b, SN N0, cM0)) high-grade, ER positive, OR negative, HER-2/johnnie negative invasive ductal carcinoma of the left breast. S/p left breast lumpectomy and sentinel lymph node biopsy (10/25/2020) High Oncotype recurrence score of 39 S/p 4 cycles of dose dense AC as well as 4 cycles of dose dense Taxol (12/26/2020?04/02/2021) S/p adjuvant radiation therapy to the left breast (04/23/2021 - 06/10/2021) Adjuvant anastrozole started on 04/21/2021. Unable to tolerate anastrozole as well as letrozole Taking exemestane 25 mg daily since 10/15/2022, tolerating it well. Beta thalassemia minor, lab done on 09/17/2022 DEXA, osteopenia, 03/04/2023. DIAGNOSIS: Malignant neoplasm of upper-inner quadrant of left female breast [ICD10] C50.212 DATE OF DIAGNOSIS: 10/25/2020 STAGE/TNM: Stage Ia (pT1b, SN N0, cM0)) high-grade, ER positive, OR negative, HER-2/johnnie negative invasive ductal carcinoma of the left breast. TREATMENT HISTORY: Care?Plan Start?Date Cycle Day Intent zometa?q?30?days,?q?90?days?for?bone?mets 10/31/2024 1 90 Maintenance AC-Taxol?Dose?Dense?q?2wks 12/03/2020 1 14 Curative?(adjuvant) HISTORY OF PRESENT ILLNESS: Ms. Rivera is here at [facility] clinic. Left breast biopsy showed benign fibroadenoma, negative for carcinoma, 10/13/2023. Patient taking exemestane 25 mg daily, tolerating well. Patient reports good appetite and energy levels. 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 Patient's only complaint is intermittent left breast pain due to healed surgical scar that she has had since her left breast lumpectomy 2020. Patient denies palpable breast lumps, denies palpable lumps to bilateral axilla. She denies any cough, chest pain, abdominal pain or leg cramps, weight loss. HISTORY: Evelio Rivera is a 59-year-old SPA speaking female with the following oncology history. 03/07/2018: Bilateral digital diagnostic mammography? 04/21/2019: Left breast diagnostic mammogram? 06/07/2019: Left breast ultrasound-guided biopsy? 07/19/2020: Left breast diagnostic mammogram? 10/01/2020: Left breast stereotactic core biopsy? 10/25/2020: Left breast lumpectomy and sentinel lymph node biopsy? 01/30/2021: Bone density test? 12/26/2020?04/02/2021: Ms. Rivera was treated with 4 cycles of dose dense before meals and 4 cycles of dose dense Taxol. S/p adjuvant radiation therapy to the left breast (04/23/2021 - 06/10/2021) Adjuvant anastrozole started on 04/21/2021. She also started taking Citracal 1 tablet p.o. twice daily 05/25/2022: Hemoglobin 10.7, MCV 71, WBC 4.6, ANC 2.9, platelets 205,000. 09/02/2022: Hemoglobin 11.1, MCV 77, WBC 5.4, ANC 3.5, platelets 219,000, creatinine 0.90, ferritin 57, iron saturation 32%, B12 1160, folate more than 20. 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 atorvastatin - 10 mg 1 tab Daily 2. Citracal - 200 mg (950 mg) 1 tab Twice a Day 3. exemestane - 25 mg 1 tab Daily 4. ferrous gluconate - 324 mg (37.5 mg iron) 1 tab 1 tab every other day 5. Januvia - 100 mg 1 tab Daily 6. lisinopril - 2.5 mg Daily Medications Last Reconciled by Anyi Burns MA on 11/21/2024 ALLERGIES: No Known Allergies; No Known Drug Allergies REVIEW OF SYSTEMS: A complete 14-point review of systems was performed and is negative except as noted in interval history. PHYSICAL EXAMINATION: VITAL SIGNS: Temperature?98.8, B/P?108/72, Oxygen?Saturation?99% Weight?124?lbs (Change?since?11/20/24:?-0.8?lbs) PAIN: 3 - Between mild and moderate pain ECOG Performance Status: None GENERAL APPEARANCE: Appears well, in no apparent distress, appropriately interactive. HEENT: Normocephalic, no temporal wasting, normal conjunctiva, , normal hearing, lips without lesions, neck normal range of motion. PULMONARY: Normal respiratory effort, no respiratory distress or use of accessory muscles, speaking in full sentences, no tachypnea. EXTREMITIES: No cyanosis. SKIN: Normal skin appearance. NEUROLOGIC: Alert and oriented x4. PSHYCHIATRIC: Appropriate affect, mood normal, behavior normal, intact thought and speech. LABORATORY DATA: I have personally reviewed and interpreted each of the patient?s relevant lab tests, abnormal findings are below: Date 09/13/24 11/20/24 ??WHITE?BLOOD?COUNT?(Thou/mm3) 5.9 5.3 ??RED?BLOOD?COUNT?(Miln/mm3) 4.76 4.90 ??HEMOGLOBIN?(gm/dl) 10.8?L 10.8?L ??HEMATOCRIT?(%) 33.9?L 34.3?L ??PLATELET?COUNT?(Thou/mm3) 220 220 ??NEUTROPHILS?%,?AUTO?(%) 62 58 ??LYMPH?%,?AUTO?(%) 26 29 ??NEUTROPHILS,?AUTO?(Thou/mm3) 3.6 3.1 ??GLUCOSE,RANDOM?(mg/dL) ? 137?H ??BLOOD?UREA?NITROGEN?(mg/dL) ? 12 ??CREATININE?(mg/dL) ? 0.60 ??SODIUM?(mmol/L) ? 141 ??POTASSIUM?(mmol/L) ? 3.9 ??CHLORIDE?(mmol/L) ? 106 ??CrCl?(CandG)?(ml/min) ? 91.33 ??AST/SGOT?(Unit/L) ? 26 ??ALT/SGPT?(Unit/L) ? 32 ??ALKALINE?PHOSPHATASE?(Unit/L) ? 57 ??BILIRUBIN,?TOTAL?(mg/dL) ? 0.7 ??PROTEIN?TOTAL?(gm/dl) ? 6.6 ??ALBUMIN,?SERUM?(gm/dl) ? 4.1 ??GLOBULIN?(gm/dl) ? 2.5 ??ALBUMIN/GLOBULIN?RATIO ? 1.6 ??CALCIUM,?SERUM?(mg/dL) ? 9.7 ??CALCIUM?SERUM?(CORRECTED)?(mg/dL) ? 9.7 ??TOTAL?IRON?BINDING?CAP?(S*)?(mcg/dL) ? 311 ??UNBOUND?IBC?(mcg/dL) ? 200?L ASSESSMENT/PLAN: 1. Stage Ia (pT1b, SN N0, cM0)) high-grade, ER positive, OR negative, HER-2/johnnie negative invasive ductal carcinoma of the left breast. S/p left breast lumpectomy and sentinel lymph node biopsy (10/25/2020) High Oncotype recurrence score of 39 S/p 4 cycles of dose dense AC as well as 4 cycles of dose dense Taxol (12/26/2020?04/02/2021) S/p adjuvant radiation therapy to the left breast (04/23/2021 - 06/10/2021) Right sided chest Chemo-Port, declining to remove, will come in for flush every 6 to 8 weeks. Adjuvant anastrozole started on 04/21/2021, discontinued. Wrist pains as well as elbow pains and generalized body aches improved since starting exemestane and discontinuing letrozole. She attributes these pains to letrozole. Did not want to continue letrozole. Tolerating exemestane 25 mg since 10/15/2022. Continue exemestane CEA is 0.7 on 12/27/2023 Left breast biopsy showed benign fibroadenoma negative for carcinoma, 10/13/2023 Left breast ultrasound showed probably benign findings, 1 additional 6-month left breast ultrasound recommended, 02/21/2024. 07/25/2024 patient's ultrasound showed retroareolar lesion in the left breast. Radiologist again planning to to do biopsy for patient. Patient is very reluctant and worried that she will have again and again a biopsy Patient is still waiting for MRI,,, will order ultrasound-guided biopsy at our own hospital as patient has waited for almost 4 months and biopsy is not still completed Naterra is negative for any cancer recurrence 2. Thalassemia minor, hemoglobin electrophoresis lab done on 09/17/2022 Reports history of iron deficiency and B12, takes [id number] B12 supplements at home Hemoglobin 11.0, MCV 69, iron saturation 28% ferritin 58, vitamin B12 is 1,489, folate is >24.00 on 03/13/2024. 3. Colonoscopy done in [place] 2021, according to patient she was told that it was normal. Osteoporosis Assessment: Patient requires Reclast infusions every 6 months due to discontinuation of oral medication. Calcium and vitamin D supplementation is ongoing. Plan: -Continue Zometa - Continue calcium and vitamin D supplementation Hypercholesterolemia Assessment: Patient is taking atorvastatin for cholesterol management. Exemestane does not interfere with atorvastatin. Plan: - Continue atorvastatin (dose not specified) Follow-up with primary care Nutritional Supplementation Assessment: Patient inquired about vitamin B17 supplementation. Recommendation for a multivitamin like Centrum Silver was provided instead, which includes calcium, vitamin D, and B12. Plan: -Continue multivitamin (e.g., Centrum Silver) daily Iron deficiency Labs do not reveal significant iron deficiency B12 deficiency or folic acid As iron is mildly low we will start on oral iron and see if response RTC in 6 to 8 weeks to follow-up ORDERS: Order # Description [id number] MD Follow Up 2 Months + Comprehensive Metabolic Panel - 12 + CBC with Auto Diff RETURN TO CLINIC: I reviewed the diagnosis, prognosis, and recommended treatment/procedure options with the patient (and/or their legal business representative), including the potential benefits, risks, side effects and alternative therapies. We also discussed the option of no treatment and the possibility of clinical trial participation, if applicable. All questions were addressed, and they demonstrated understanding. They provided informed consent to proceed with the proposed plan of care. BILLING AND COMPLIANCE: I reviewed external records from providers outside my specialty as summarized above. I spent a total of 50 minutes on this patient?s care on the day of their visit excluding time spent related to any billed procedures. This time includes time spent with the patient as well as time spent documenting in the medical record, reviewing patients records and tests, obtaining history, placing orders, communicating with other healthcare professionals, counseling the patient, family or caregiver, and/or care coordination for the diagnoses above. Electronically Signed by: {Object.Sanct_ID*[email or web address]@M}, {Object.Sanct_ID*PnP.Suffix@U} D: {Object.Sanct_Date} T: {Object.Sanct_Time} CC: PCP: No Primary/family, Physician Referring: Alex Mccabe This document was completed utilizing speech recognition software. Grammatical errors, random word insertions, pronoun errors, and incomplete sentences are an occasional consequence of this system due to software limitations, ambient noise, and hardware issues. Any formal questions or concerns about the content, text or information contained within the body of this dictation should be directly addressed to the provider for clarification.
== END 2024-12-08 23:59 | disposition home or self-care (01) ==
LOC: SCTC 11:10
PROVIDERS: Referring Provider Internal Medicine Hematology & Oncology; Visit Provider Internal Medicine Hematology & Oncology
DX: C50.212 Malignant neoplasm of upper-inner quadrant of left female breast (principal); Z17.0 Estrogen receptor positive status [ER+]; Z17.22 Progesterone receptor negative status; Z17.32 Human epidermal growth factor receptor 2 negative status; Z90.12 Acquired absence of left breast and nipple; Z92.21 Personal history of antineoplastic chemotherapy; Z92.3 Personal history of irradiation; Z79.811 Long term (current) use of aromatase inhibitors; E53.8 Deficiency of other specified B group vitamins; M81.0 Age-related osteoporosis without current pathological fracture; D56.3 Thalassemia minor; E78.00 Pure hypercholesterolemia, unspecified
CPT/HCPCS: 36591; 80053; 82607; 82728; 82746; 83540; 83550; 85025; 99213; A4216; J1642; G0463

== ENCOUNTER 2024-12-22 08:24 | Outpatient (RCR) | payer MEDICAID, SELFPAY ==
[2024-12-22 09:00] LABS: Basophils # (Auto) 0.0 Thou/mm3 (0.0-0.2); Basophils % (Auto) 0 % (0-2.5); Eosinophils # (Auto) 0.2 Thou/mm3 (0.0-0.5); Eosinophils % (Auto) 3 % (0-10); Hematocrit 34.5 % (36.0-46.0); Hemoglobin 10.9 g/dL (12.0-16.0); Immature Granulocytes Auto 0.02 Thou/mm3 (0.00-0.00); Lymphocytes # (Auto) 1.8 Thou/mm3 (1.0-4.8); Lymphocytes % (Auto) 28 % (10-50); Mean Corpuscular HGB Conc 31.6 g/dl (31.0-37.0); Mean Corpuscular Hemoglobin 22.5 pg (25.0-35.0); Mean Corpuscular Volume 71 fL (80-100); Monocytes # (Auto) 0.5 Thou/mm3 (0.0-0.8); Monocytes % (Auto) 8 % (0-12); Neutrophils # (Auto) 3.9 Thou/mm3 (1.8-7.7); Neutrophils % (Auto) 60 % (37-80); Nucleated Red Blood Cell # 0.00 Thou/mm3 (0.00-0.00); Nucleated Red Blood Cell % 0 /100 WBC (0); Platelet Count 202 Thou/mm3 (140-440); RDW Standard Deviation 36.2 fL (36.4-46.3); Red Blood Count 4.85 Miln/mm3 (4.00-5.20); White Blood Count 6.5 Thou/mm3 (3.6-11.0)
[2024-12-22 09:19] LABS: Alanine Aminotransferase 24 U/L (10-49); Albumin, Serum 4.3 gm/dL (3.5-5.0); Albumin/Globulin Ratio 2.0 (1.2-2.2); Alkaline Phosphatase 54 U/L (46-116); Anion Gap 7 (7-16); Aspartate Amino Transferase 24 U/L (0-34); BUN/Creatinine Ratio 16 Ratio (12-20); Bilirubin,Total 0.6 mg/dL (0.3-1.2); Blood Urea Nitrogen 11 mg/dL (9-23); Calcium 9.3 mg/dL (8.3-10.6); Calcium (Corrected) 9.3 mg/dL (8.5-10.1); Carbon Dioxide 25.7 mMol/L (20.0-31.0); Chloride 107 mMol/L (98-107); Creatinine (Component) 0.7 mg/dL (0.6-1.3); Globulin 2.2 gm/dL (2.3-3.5); Glucose 175 mg/dL (74-106); Osmolality,Calculated 282 (275-295); Potassium 4.0 mMol/L (3.4-5.1); Sodium 140 mMol/L (136-145); Total Protein 6.5 gm/dL (5.7-8.2); eGFR > 60 See Note
== END 2025-01-07 23:59 | disposition home or self-care (01) ==
LOC: SCTC 08:24
PROVIDERS: PCP Physician Assistant; Referring Provider Internal Medicine Hematology & Oncology; Visit Provider Internal Medicine Hematology & Oncology
DX: C50.212 Malignant neoplasm of upper-inner quadrant of left female breast (principal); Z17.0 Estrogen receptor positive status [ER+]; Z17.22 Progesterone receptor negative status; Z17.32 Human epidermal growth factor receptor 2 negative status; Z90.12 Acquired absence of left breast and nipple; Z92.3 Personal history of irradiation; Z79.811 Long term (current) use of aromatase inhibitors; D56.3 Thalassemia minor; M81.0 Age-related osteoporosis without current pathological fracture; E78.00 Pure hypercholesterolemia, unspecified; E61.1 Iron deficiency; E53.8 Deficiency of other specified B group vitamins
CPT/HCPCS: 36591; 80053; 85025; A4216; J1642

== ENCOUNTER → 2024-12-25 | Outpatient (CLI) | payer MEDICAID, SELFPAY ==
--- NOTE | 2024-12-25 12:00 | XR_ITS ---
EXAMINATION: MRI breast without intravenous contrast MRI breast with intravenous contrast Date and time: December 25, 2024, 12:19 p.m., comparison left breast sonogram July 25, 2024, mammogram July 10, 2024, left breast sonogram February 21, 2024, ultrasound-guided percutaneous left breast biopsy October 13, 2023 INDICATIONS: Diagnosis malignant neoplasm of upper-inner quadrant left female breast, patient states new lump found in the left breast May 2024, history left breast cancer diagnosed 2020 FINDINGS: Scattered areas of fibroglandular tissue Minimal Breast enhancement Status post left mastectomy 5 mm circumscribed nodule at the base of the left nipple Post kinetic analysis does not demonstrate rapid washout of this nodule Nonpathologic right axillary lymph nodes No left axillary lymph nodes noted No chest wall mass IMPRESSION: BI-RADS Category 0: Incomplete: Need additional imaging evaluation 5 mm circumscribed nodule at the base of the left nipple, recommend bilateral breast sonography with a radiologist in attendance, left diagnostic mammography follow-up
== END | disposition home or self-care (01) ==
LOC: SMRI 11:40
PROVIDERS: PCP Physician Assistant; Referring Provider Internal Medicine Hematology & Oncology; Visit Provider Internal Medicine Hematology & Oncology
DX: N63.20 Unspecified lump in the left breast, unspecified quadrant (principal); R92.8 Other abnormal and inconclusive findings on diagnostic imaging of breast; C50.212 Malignant neoplasm of upper-inner quadrant of left female breast
CPT/HCPCS: 77049; A9577; C8908

== ENCOUNTER → 2025-01-08 | Outpatient (CLI) | payer MEDICAID, SELFPAY ==
[2025-01-03 10:30] LABS: Basophils # (Auto) 0.0 Thou/mm3 (0.0-0.2); Basophils % (Auto) 0 % (0-2.5); Eosinophils # (Auto) 0.1 Thou/mm3 (0.0-0.5); Eosinophils % (Auto) 2 % (0-10); Hematocrit 36.8 % (36.0-46.0); Hemoglobin 11.3 g/dL (12.0-16.0); Immature Granulocytes Auto 0.03 Thou/mm3 (0.00-0.00); Lymphocytes # (Auto) 2.0 Thou/mm3 (1.0-4.8); Lymphocytes % (Auto) 31 % (10-50); Mean Corpuscular HGB Conc 30.7 g/dl (31.0-37.0); Mean Corpuscular Hemoglobin 21.9 pg (25.0-35.0); Mean Corpuscular Volume 71 fL (80-100); Monocytes # (Auto) 0.5 Thou/mm3 (0.0-0.8); Monocytes % (Auto) 8 % (0-12); Neutrophils # (Auto) 3.8 Thou/mm3 (1.8-7.7); Neutrophils % (Auto) 59 % (37-80); Nucleated Red Blood Cell # 0.00 Thou/mm3 (0.00-0.00); Nucleated Red Blood Cell % 0 /100 WBC (0); Platelet Count 201 Thou/mm3 (140-440); RDW Standard Deviation 35.8 fL (36.4-46.3); Red Blood Count 5.17 Miln/mm3 (4.00-5.20); White Blood Count 6.5 Thou/mm3 (3.6-11.0)
[2025-01-03 10:41] LABS: INR 1.0 (0.9-1.3); Partial Thromboplastin Time 27.5 Seconds (22.0-36.0); Prothrombin Time 10.4 Seconds (9.0-12.2)
--- NOTE | 2025-01-08 08:30 | XR_ITS ---
Examinations: Ultrasound-guided percutaneous breast biopsy, left breast retroareolar nodule Left breast sonography Limited. Exam date and time: January 08, 2025, 0920 hours INDICATIONS: BI-RADS 4 suspicious nodule retroareolar region left breast on left breast sonogram 03/27/2024. Informed consent provided. Technique: A timeout was completed verifying correct patient, procedure, site, positioning, and special equipment if applicable Informed consent provided. The patient was placed in a supine position for the breast biopsy. Sonographic images of the breast were performed for localization of the suspicious nodule The patient's breast was prepped and draped in sterile fashion. Maximum sterile barrier technique, hand hygiene, ultrasound sterile technique 1% lidocaine was used to anesthetize the skin and breast adjacent to the suspicious nodule. Utilizing ultrasonographic guidance, 8 core biopsies were obtained of the suspicious nodule utilizing an 18-gauge BioPince needle. The specimens appears satisfactory. Estimated blood loss 3 cc. The patient tolerated the procedure well and there were no complications. Impression: Successful ultrasound-guided percutaneous breast biopsy, left breast retroareolar nodule.
== END | disposition home or self-care (01) ==
PROVIDERS: Student in an Organized Health Care Education/Training Program; PCP Internal Medicine Hematology & Oncology; Referring Provider Internal Medicine Hematology & Oncology; Visit Provider Internal Medicine Hematology & Oncology
DX: C50.212 Malignant neoplasm of upper-inner quadrant of left female breast (principal)
CPT/HCPCS: 19083; 36415; 85025; 85610; 85730

== ENCOUNTER 2025-01-15 14:41 | Outpatient (RCR) | payer MEDICAID, SELFPAY ==
[2025-01-12 11:33] LABS: Basophils # (Auto) 0.0 Thou/mm3 (0.0-0.2); Basophils % (Auto) 1 % (0-2.5); Eosinophils # (Auto) 0.1 Thou/mm3 (0.0-0.5); Eosinophils % (Auto) 2 % (0-10); Hematocrit 34.1 % (36.0-46.0); Hemoglobin 10.8 g/dL (12.0-16.0); Immature Granulocytes Auto 0.00 Thou/mm3 (0.00-0.00); Lymphocytes # (Auto) 1.4 Thou/mm3 (1.0-4.8); Lymphocytes % (Auto) 24 % (10-50); Mean Corpuscular HGB Conc 31.7 g/dl (31.0-37.0); Mean Corpuscular Hemoglobin 22.5 pg (25.0-35.0); Mean Corpuscular Volume 71 fL (80-100); Monocytes # (Auto) 0.4 Thou/mm3 (0.0-0.8); Monocytes % (Auto) 7 % (0-12); Neutrophils # (Auto) 3.9 Thou/mm3 (1.8-7.7); Neutrophils % (Auto) 66 % (37-80); Nucleated Red Blood Cell # 0.00 Thou/mm3 (0.00-0.00); Nucleated Red Blood Cell % 0 /100 WBC (0); Platelet Count 192 Thou/mm3 (140-440); RDW Standard Deviation 35.8 fL (36.4-46.3); Red Blood Count 4.80 Miln/mm3 (4.00-5.20); White Blood Count 5.8 Thou/mm3 (3.6-11.0)
[2025-01-12 11:56] LABS: Alanine Aminotransferase 26 U/L (10-49); Albumin, Serum 4.4 gm/dL (3.5-5.0); Albumin/Globulin Ratio 1.7 (1.2-2.2); Alkaline Phosphatase 52 U/L (46-116); Anion Gap 10 (7-16); Aspartate Amino Transferase 26 U/L (0-34); BUN/Creatinine Ratio 22 Ratio (12-20); Bilirubin,Total 0.7 mg/dL (0.3-1.2); Blood Urea Nitrogen 13 mg/dL (9-23); Calcium 9.8 mg/dL (8.3-10.6); Calcium (Corrected) 9.8 mg/dL (8.5-10.1); Carbon Dioxide 26.2 mMol/L (20.0-31.0); Chloride 107 mMol/L (98-107); Creatinine (Component) 0.6 mg/dL (0.6-1.3); Globulin 2.6 gm/dL (2.3-3.5); Glucose 119 mg/dL (74-106); Osmolality,Calculated 286 (275-295); Potassium 4.0 mMol/L (3.4-5.1); Sodium 143 mMol/L (136-145); Total Protein 7.0 gm/dL (5.7-8.2); eGFR > 60 See Note
--- NOTE | 2025-01-22 11:54 | CTCFLWUP_ITS ---
Patient: ALLIE RIVERA : 1965 Page 7 of 10 FOLLOW UP NOTE DATE OF SERVICE: 01/15/2025 NAME: ALLIE RIVERA ACCOUNT: [id number] : 1965 AGE: 59 INTERVAL HISTORY: Summary --59-year-old woman with breast cancer here for follow-up. Patient is taking her exemestane calcium and vitamin D and Zometa. Patient's biopsy was not completed by Dr. Johansen and was referred to interventional radiology. Patient completed biopsy of the left breast and it shows fibroadenoma. Medical History - Hypercholesterolemia, managed with atorvastatin - Stage one breast cancer diagnosed in 2020 - Menopause Medications and Supplements - Exemestane - Prevents hormone formation in fat cells - Worsens menopause symptoms - Atorvastatin - Helps reduce cholesterol - Calcium - Vitamin D - Reclast - Infusion every 6 months - Replaced oral medication Social History - Living Situation: Lives in [facility], approximately 15 minutes away from the medical facility - Travel: Planning to be out of the country from late July to August Review of Systems Endocrine: Positive for worsening menopause symptoms. Laboratory, Imaging, and Diagnostic Test Results - Mammogram (June 2023): Performed, results not specified - Ultrasound of left breast (February 2024): Performed, results not specified ONCOLOGY HISTORY: Stage Ia (pT1b, SN N0, cM0)) high-grade, ER positive, MN negative, HER-2/johnnie negative invasive ductal carcinoma of the left breast. S/p left breast lumpectomy and sentinel lymph node biopsy (10/25/2020) High Oncotype recurrence score of 39 S/p 4 cycles of dose dense AC as well as 4 cycles of dose dense Taxol (12/26/2020?04/02/2021) S/p adjuvant radiation therapy to the left breast (04/23/2021 - 06/10/2021) Adjuvant anastrozole started on 04/21/2021. Unable to tolerate anastrozole as well as letrozole Taking exemestane 25 mg daily since 10/15/2022, tolerating it well. Beta thalassemia minor, lab done on 09/17/2022 DEXA, osteopenia, 03/04/2023. DIAGNOSIS: Malignant neoplasm of upper-inner quadrant of left female breast [ICD10] C50.212 DATE OF DIAGNOSIS: 10/25/2020 STAGE/TNM: Stage Ia (pT1b, SN N0, cM0)) high-grade, ER positive, MN negative, HER-2/johnnie negative invasive ductal carcinoma of the left breast. TREATMENT HISTORY: Care?Plan Start?Date Cycle Day Intent AC-Taxol?Dose?Dense?q?2wks 12/03/2020 1 14 Curative?(adjuvant) zometa?q?30?days,?q?90?days?for?bone?mets 10/31/2024 1 90 Maintenance HISTORY OF PRESENT ILLNESS: Ms. Rivera is here at [facility] clinic. Left breast biopsy showed benign fibroadenoma, negative for carcinoma, 10/13/2023. Patient taking exemestane 25 mg daily, tolerating well. Patient reports good appetite and energy levels. 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 Patient's only complaint is intermittent left breast pain due to healed surgical scar that she has had since her left breast lumpectomy 2020. Patient denies palpable breast lumps, denies palpable lumps to bilateral axilla. She denies any cough, chest pain, abdominal pain or leg cramps, weight loss. HISTORY: Allie Rivera is a 59-year-old SPA speaking female with the following oncology history. 03/07/2018: Bilateral digital diagnostic mammography? 04/21/2019: Left breast diagnostic mammogram? 06/07/2019: Left breast ultrasound-guided biopsy? 07/19/2020: Left breast diagnostic mammogram? 10/01/2020: Left breast stereotactic core biopsy? 10/25/2020: Left breast lumpectomy and sentinel lymph node biopsy? 01/30/2021: Bone density test? 12/26/2020?04/02/2021: Ms. Rivera was treated with 4 cycles of dose dense before meals and 4 cycles of dose dense Taxol. S/p adjuvant radiation therapy to the left breast (04/23/2021 - 06/10/2021) Adjuvant anastrozole started on 04/21/2021. She also started taking Citracal 1 tablet p.o. twice daily 05/25/2022: Hemoglobin 10.7, MCV 71, WBC 4.6, ANC 2.9, platelets 205,000. 09/02/2022: Hemoglobin 11.1, MCV 77, WBC 5.4, ANC 3.5, platelets 219,000, creatinine 0.90, ferritin 57, iron saturation 32%, B12 1160, folate more than 20. 09/17/2022: Hemoglobin electrophoresis: Beta thalassemia minor 12/04/2022: Hemoglobin 11.1, MCV 78, WBC 5.9, ANC 4.2, platelets 211,000, creatinine 0.7, CA 15?3 is 3.0, CEA<0.5 03/04/2023: DEXA 03/05/2023: Hemoglobin 11.4, MCV 71, WBC 5.8, ANC 3.8, platelets 216,000, creatinine 0.7 06/01/2023: Hemoglobin 11.3, MCV 78, WBC 5.5, ANC 3.7, platelets 193,000, CEA < 0.5 07/09/2023: Bilateral mammogram screen 09/06/2023: CEA 0.7 10/13/2023: Left breast biopsy-benign, fibroadenoma 01/08/2025 left breast retroareolar ultrasound-guided biopsy shows 5 benign fibroadenoma negative for atypia OTHER MEDICAL HISTORY/CONDITIONS: FAMILY HISTORY: 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 atorvastatin - 10 mg 1 tab Daily 2. Citracal - 200 mg (950 mg) 1 tab Twice a Day 3. exemestane - 25 mg 1 tab Daily 4. ferrous gluconate - 324 mg (37.5 mg iron) 1 tab 1 tab every other day 5. Januvia - 100 mg 1 tab Daily 6. lisinopril - 2.5 mg Daily Medications Last Reconciled by Allie Willoughby MD on 01/15/2025 ALLERGIES: No Known Allergies; No Known Drug Allergies REVIEW OF SYSTEMS: A complete 14-point review of systems was performed and is negative except as noted in interval history. PHYSICAL EXAMINATION: VITAL SIGNS: Temperature?97.5, B/P?138/82, Oxygen?Saturation?98% Weight?126?lbs (Change?since?01/12/25:?0.6?lbs) PAIN: 0 - No pain ECOG Performance Status: 0 - Asymptomatic and fully active GENERAL APPEARANCE: Appears well, in no apparent distress, appropriately interactive. HEENT: Normocephalic, no temporal wasting, normal conjunctiva, , normal hearing, lips without lesions, neck normal range of motion. PULMONARY: Normal respiratory effort, no respiratory distress or use of accessory muscles, speaking in full sentences, no tachypnea. EXTREMITIES: No cyanosis. SKIN: Normal skin appearance. NEUROLOGIC: Alert and oriented x4. PSHYCHIATRIC: Appropriate affect, mood normal, behavior normal, intact thought and speech. LABORATORY DATA: I have personally reviewed and interpreted each of the patient?s relevant lab tests, abnormal findings are below: Date 12/22/24 01/03/25 01/12/25 ??WHITE?BLOOD?COUNT?(Thou/mm3) 6.5 6.5 5.8 ??RED?BLOOD?COUNT?(Miln/mm3) 4.85 5.17 4.80 ??HEMOGLOBIN?(gm/dl) 10.9?L 11.3?L 10.8?L ??HEMATOCRIT?(%) 34.5?L 36.8 34.1?L ??PLATELET?COUNT?(Thou/mm3) 202 201 192 ??NEUTROPHILS?%,?AUTO?(%) 60 59 66 ??LYMPH?%,?AUTO?(%) 28 31 24 ??NEUTROPHILS,?AUTO?(Thou/mm3) 3.9 3.8 3.9 ??GLUCOSE,RANDOM?(mg/dL) ? ? 119?H ??BLOOD?UREA?NITROGEN?(mg/dL) ? ? 13 ??CREATININE?(mg/dL) ? ? 0.60 ??SODIUM?(mmol/L) ? ? 143 ??POTASSIUM?(mmol/L) ? ? 4.0 ??CHLORIDE?(mmol/L) ? ? 107 ??CrCl?(CandG)?(ml/min) ? ? 91.77 ??AST/SGOT?(Unit/L) ? ? 26 ??ALT/SGPT?(Unit/L) ? ? 26 ??ALKALINE?PHOSPHATASE?(Unit/L) ? ? 52 ??BILIRUBIN,?TOTAL?(mg/dL) ? ? 0.7 ??PROTEIN?TOTAL?(gm/dl) ? ? 7.0 ??ALBUMIN,?SERUM?(gm/dl) ? ? 4.4 ??GLOBULIN?(gm/dl) ? ? 2.6 ??ALBUMIN/GLOBULIN?RATIO ? ? 1.7 ??CALCIUM,?SERUM?(mg/dL) ? ? 9.8 ??CALCIUM?SERUM?(CORRECTED)?(mg/dL) ? ? 9.8 ASSESSMENT/PLAN: 1. Stage Ia (pT1b, SN N0, cM0)) high-grade, ER positive, MN negative, HER-2/johnnie negative invasive ductal carcinoma of the left breast. S/p left breast lumpectomy and sentinel lymph node biopsy (10/25/2020) High Oncotype recurrence score of 39 S/p 4 cycles of dose dense AC as well as 4 cycles of dose dense Taxol (12/26/2020?04/02/2021) S/p adjuvant radiation therapy to the left breast (04/23/2021 - 06/10/2021) Right sided chest Chemo-Port, declining to remove, will come in for flush every 6 to 8 weeks. Adjuvant anastrozole started on 04/21/2021, discontinued. Wrist pains as well as elbow pains and generalized body aches improved since starting exemestane and discontinuing letrozole. She attributes these pains to letrozole. Did not want to continue letrozole. Tolerating exemestane 25 mg since 10/15/2022. Continue exemestane CEA is 0.7 on 12/27/2023 Left breast biopsy showed benign fibroadenoma negative for carcinoma, 10/13/2023 Left breast ultrasound showed probably benign findings, 1 additional 6-month left breast ultrasound recommended, 02/21/2024. 07/25/2024 patient's ultrasound showed retroareolar lesion in the left breast. Radiologist again planning to to do biopsy for patient. Patient is very reluctant and worried that she will have again and again a biopsy MRI completed. Biopsy is completed and shows fibroadenoma Naterra is negative for any cancer recurrence No evidence of recurrence Continue current therapy with exemestane Zometa calcium vitamin D 2. Thalassemia minor, hemoglobin electrophoresis lab done on 09/17/2022 Reports history of iron deficiency and B12, takes [id number] B12 supplements at home Hemoglobin 11.0, MCV 69, iron saturation 28% ferritin 58, vitamin B12 is 1,489, folate is >24.00 on 03/13/2024. 3. Colonoscopy done in [place] 2021, according to patient she was told that it was normal. Osteoporosis Assessment: Patient requires Reclast infusions every 6 months due to discontinuation of oral medication. Calcium and vitamin D supplementation is ongoing. Plan: -Continue Zometa - Continue calcium and vitamin D supplementation Hypercholesterolemia Assessment: Patient is taking atorvastatin for cholesterol management. Exemestane does not interfere with atorvastatin. Plan: - Continue atorvastatin (dose not specified) Follow-up with primary care Nutritional Supplementation Assessment: Patient inquired about vitamin B17 supplementation. Recommendation for a multivitamin like Centrum Silver was provided instead, which includes calcium, vitamin D, and B12. Plan: -Continue multivitamin (e.g., Centrum Silver) daily Iron deficiency Labs do not reveal significant iron deficiency B12 deficiency or folic acid As iron is mildly low we will start on oral iron and see if response RTC in 6 to 8 weeks to follow-up ORDERS: Order # Description [id number] Comprehensive Metabolic Panel - 12 + CBC with Auto Diff [id number] MD Follow Up 3 Months [id number] RETURN TO CLINIC: I reviewed the diagnosis, prognosis, and recommended treatment/procedure options with the patient (and/or their legal account service representative), including the potential benefits, risks, side effects and alternative therapies. We also discussed the option of no treatment and the possibility of clinical trial participation, if applicable. All questions were addressed, and they demonstrated understanding. They provided informed consent to proceed with the proposed plan of care. BILLING AND COMPLIANCE: I reviewed external records from providers outside my specialty as summarized above. I spent a total of 50 minutes on this patient?s care on the day of their visit excluding time spent related to any billed procedures. This time includes time spent with the patient as well as time spent documenting in the medical record, reviewing patients records and tests, obtaining history, placing orders, communicating with other healthcare professionals, counseling the patient, family or caregiver, and/or care coordination for the diagnoses above. Electronically Signed by: Alex Mccabe MD T: 11:51 AM CC: PCP: Alex Mccabe Referring: Alex Mccabe This document was completed utilizing speech recognition software. Grammatical errors, random word insertions, pronoun errors, and incomplete sentences are an occasional consequence of this system due to software limitations, ambient noise, and hardware issues. Any formal questions or concerns about the content, text or information contained within the body of this dictation should be directly addressed to the provider for clarification.
== END 2025-02-07 23:59 | disposition home or self-care (01) ==
LOC: SCTC 14:41
PROVIDERS: PCP Physician Assistant; Referring Provider Internal Medicine Hematology & Oncology; Visit Provider Internal Medicine Hematology & Oncology
DX: C50.212 Malignant neoplasm of upper-inner quadrant of left female breast (principal); Z17.0 Estrogen receptor positive status [ER+]; Z17.22 Progesterone receptor negative status; Z17.32 Human epidermal growth factor receptor 2 negative status; Z90.12 Acquired absence of left breast and nipple; Z79.811 Long term (current) use of aromatase inhibitors; Z92.21 Personal history of antineoplastic chemotherapy; Z92.3 Personal history of irradiation; D56.3 Thalassemia minor; M81.0 Age-related osteoporosis without current pathological fracture; E78.00 Pure hypercholesterolemia, unspecified; E61.1 Iron deficiency
CPT/HCPCS: 36591; 80053; 85025; 99212; A4216; J1642; G0463